=== PATIENT | female | born 1965 | race Caucasian/White ===

== ENCOUNTER → 2019-02-21 | Day surgery (SDC) | payer OTHER ==
[~2019-02-21] MED LIST: CHOL100014 PO; HYDROmorphone 2 MG/ML VIAL IV PRN; IV RINGERS,LACTATED 1000ML 1,000 ML IV SCH; LIDOCAINE 1% PF 2 ML VIAL. ID PRN; MORPHINE SULFATE 2 MG/ML VIAL. IV PRN; MULT-208 PO; ONDANSETRON PF 4 MG/2 ML VIAL. IV PRN; PREMPRO 0.3 MG1 EACH PO; PROCHLORPERAZINE 10 MG/2 ML VIAL. IV PRN; PROPOFOL 40 ML IV ONE; SIMV10TA3 PO; TELM40TA PO; fentaNYL PF VIAL 100 MCG/2 ML VIAL IV PRN
[2019-02-21 13:41] VITALS: BP 127/74
== END ==
LOC: ENDOS 11:56
PROVIDERS: ATTEND Internal Medicine Gastroenterology
DX: Z12.11 Encounter for screening for malignant neoplasm of colon (principal); I10 Essential (primary) hypertension; E78.00 Pure hypercholesterolemia, unspecified; K64.9 Unspecified hemorrhoids; E66.9 Obesity, unspecified; F10.21 Alcohol dependence, in remission; Z88.1 Allergy status to other antibiotic agents; Z90.710 Acquired absence of both cervix and uterus; Z98.890 Other specified postprocedural states; Z86.010 Personal history of colon polyps
CPT/HCPCS: 45378; J2704